=== PATIENT | female | born 1990 | race African-American/Black ===

== ENCOUNTER 2018-03-01 22:13 | Emergency (ER) | payer OTHER, SELFPAY ==
[2018-03-01 22:20] VITALS: BP 105/74; PULSE 80; RESP 18; TEMP 36.6; O2SAT 98; BMI 26.0
[2018-03-01] MEDS: KETOROLAC 60 MG/2 ML VIAL 30 MG IV (22:54)
[2018-03-01 23:00] LABS: Add Manual Diff / Slide Review NO; Basophils Percent Auto 0.2 % (0-2); Eosinophils Percent Auto 1.2 % (2-4); Hematocrit 37.2 % (36-46); Hemoglobin 12.5 g/dL (12.0-16.0); Lymphocytes Percent Auto 32.8 % (25-40); Mean Corpuscular HGB Conc 33.8 % (30-36); Mean Corpuscular Hemoglobin 30.5 PG (26-34); Mean Corpuscular Volume 90.2 fL (80-100); Monocytes Percent Auto 8.1 % (3-14); Neutrophils Absolute Auto 3700 /uL (3000-5900); Neutrophils Percent Auto 57.7 % (50-75); Platelet Count 245 X10^3/uL (150-400); Red Blood Cell Count 4.12 X10^6/uL (4.0-5.2); Red Cell Distribution Width 13.9 % (11.6-14.8); White Blood Cell Count 6.5 X10^3/uL (4.5-11.0)
[2018-03-01 23:06] LABS: Alanine Aminotransferase 18 IU/L (9-52); Albumin 4.1 g/dL (3.5-5.0); Albumin Globulin Ratio 1.3 (1.0-2.8); Alkaline Phosphatase 60 U/L (38-126); Aspartate Aminotransferase 17 IU/L (14-36); BUN Creatinine Ratio 12.9 (6-22); Bilirubin Total 0.3 mg/dL (0.2-1.3); Blood Urea Nitrogen 9 mg/dL (7-17); Calcium 9.1 mg/dL (8.4-10.2); Carbon Dioxide 24 mmol/L (22-32); Chloride 105 mmol/L (98-107); Estimated Glomerular Filt Rate > 60.0 mL/min (>60); Globulin 3.2 g/dL (1.7-4.1); Glucose 94 mg/dL (70-100); HEMOLYSIS 16 (0-50); Lipase 114 U/L (23-300); Potassium 3.9 mmol/L (3.4-5.1); Sodium 143 mmol/L (137-145); Total Protein 7.3 g/dL (6.3-8.2)
--- NOTE | 2018-03-02 00:25 | ED.ABDPAIN ---
HPI - Abdominal Pain General Chief Complaint: Abdominal Pain Stated Complaint: abdominal pain Time Seen by Provider: 03/01/18 23:43 Source: patient History of Present Illness HPI narrative: Patient is a 27-year-old female who presents with lower abdominal pain. She is currently being worked up for endometriosis is the 1st day of her menses. She had pretty bad cramping no excessive bleeding. She did take Aleve earlier today it only helped some. No nausea vomiting or fever. Related Data Previous Rx's Medication Instructions Recorded norgestimate-ethinyl estradiol 1 tab PO Q4H #56 pac 08/03/17 [Ortho-Cyclen (28)] Allergies Allergy/AdvReac Type Severity Reaction Status Date / Time Iodinated Contrast- Oral and Allergy Mild Verified 03/01/18 22:23 IV Dye [IODINATED CONTRAST- ORAL AND IV DYE] Review of Systems Review of Systems All systems reviewed & are unremarkable except as noted in HPI and below Constitutional Denies chills, Denies fever(s), Denies lethargy and Denies weakness Cardiovascular Denies chest pain, Denies irregular heart rhythm, Denies lightheadedness, Denies palpitations, Denies dyspnea, Denies dyspnea on exertion and Denies orthopnea Respiratory Denies cough, Denies dyspnea, Denies dyspnea on exertion and Denies wheezing Gastrointestinal Gastrointestinal: Reports as per HPI Genitourinary Reports system reviewed and no additional complaints, except as docu Integumentary/Breasts Denies pruritus, Denies erythema, Denies rash and Denies wounds Neurologic Denies weakness Endocrine Denies palpitations Allergic/Immunologic Denies wheezing PFSH Medical History Dysfunctional uterine bleeding (Acute) Social History Smoking Status: Never smoker Exam Initial Vital Signs Initial Vital Signs: Vital Signs Temperature 98 F 03/01/18 22:20 Pulse Rate 80 03/01/18 22:20 Respiratory Rate 18 03/01/18 22:20 Blood Pressure 105/74 03/01/18 22:20 Pulse Oximetry 98 03/01/18 22:20 GENERAL: Well-appearing, well-nourished and in no acute distress. HEENT: Head atraumatic,EOMI, pupils reactive, face symmetric, moist mucous membranes CARDIOVASCULAR: Regular rate and rhythm without murmurs, rubs or gallops. RESPIRATORY: Breath sounds equal bilaterally, no wheezes rales or rhonchi. ABDOMEN: Soft, mild lower abdominal tenderness all across no guarding no rebound no specific right lower quadrant pain : No CVA tenderness EXTREMITIES: Normal range of motion, no clubbing or edema. Neurovascularly intact NEUROLOGICAL: Alert and oriented x4.Normal gait and speech. SKIN: Warm, dry, no laceration, no petechiae, no rashes or lesions. Course Orders Ordered: ED Orders 03/01/18 22:40 Complete Blood Count AUTO DIFF Stat Comprehensive Metabolic Panel Stat Lipase Stat Discontinued Medications Ketorolac Tromethamine (Toradol) 30 mg IV NOW ONE Stop: 03/01/18 22:43 Last Admin: 03/01/18 22:54 Dose: 30 mg Ondansetron HCl (Zofran) 4 mg IV NOW ONE Stop: 03/01/18 22:43 Last Admin: 03/01/18 22:54 Dose: Not Given Vital Signs - 8 hr 03/01/18 22:20 03/02/18 00:29 Temperature 98 F Pulse Rate 80 72 Respiratory Rate 18 14 Blood Pressure 105/74 95/70 Pulse Oximetry 98 99 MDM - Abdominal Pain Lab Data Attestation: I reviewed the patient's lab results. Negative Result diagrams: 03/01/18 22:40 03/01/18 22:40 Lab Results 03/01/18 03/01/18 Range/Units 22:40 22:40 WBC 6.5 (4.5-11.0) X10^3/uL RBC 4.12 (4.0-5.2) X10^6/uL Hgb 12.5 (12.0-16.0) g/dL Hct 37.2 (36-46) % MCV 90.2 (80-100) fL MCH 30.5 (26-34) PG MCHC 33.8 (30-36) % RDW 13.9 (11.6-14.8) % Plt Count 245 (150-400) X10^3/uL Neut % (Auto) 57.7 (50-75) % Lymph % (Auto) 32.8 (25-40) % Sharp % (Auto) 8.1 (3-14) % Eos % (Auto) 1.2 L (2-4) % Baso % (Auto) 0.2 (0-2) % Neut # (Auto) 3700 (8283-8625) /uL Sodium 143 (137-145) mmol/L Potassium 3.9 (3.4-5.1) mmol/L Chloride 105 (98-107) mmol/L Carbon Dioxide 24 (22-32) mmol/L BUN 9 (7-17) mg/dL Creatinine 0.70 (0.52-1.04) mg/dL Estimated GFR > 60.0 (>60) mL/min BUN/Creatinine Ratio 12.9 (6-22) Glucose 94 (70-100) mg/dL Calcium 9.1 (8.4-10.2) mg/dL Total Bilirubin 0.3 (0.2-1.3) mg/dL AST 17 (14-36) IU/L ALT 18 (9-52) IU/L Alkaline Phosphatase 60 (38-126) U/L Total Protein 7.3 (6.3-8.2) g/dL Albumin 4.1 (3.5-5.0) g/dL Globulin 3.2 (1.7-4.1) g/dL Albumin/Globulin Ratio 1.3 (1.0-2.8) Lipase 114 (23-300) U/L MDM Narrative Medical decision making narrative: The patient is waiting to follow up at [facility] again for further endometriosis evaluation. Feeling better after Toradol. Discharge Plan Departure Patient Disposition: Home, Self-Care Clinical Impression: Abdominal pain Discharge Date/Time: 03/02/18 00:37 Interventions: ED Discharge Assessment Last Done: 03/02/18 00:29 Instructions: DI for Endometriosis Activity Restrictions/Additional Instructions: *You have been diagnosed with abdominal pain, probable endometriosis *What to do: Blood work at this time is within normal limits *Continue to take medications as directed *Follow up with your primary care provider in 2-3 days *Return to ER if you should have excessive bleeding going through more than 1 pad or tampon an hour, increasing abdominal pain or any new, worsening or concerning symptoms Prescriptions: No Action norgestimate-ethinyl estradiol [Ortho-Cyclen (28)] 1 EACH tablet 1 tab PO Q4H Qty: 56 RF: 0 Referrals: [facility] [Outside] Kyler Luz MD [Primary Care Provider] -
[2018-03-02 00:29] VITALS: BP 95/70; PULSE 72; RESP 14; O2SAT 99
== END 2018-03-02 00:37 | disposition home or self-care (01) ==
PROVIDERS: Emergency Provider Emergency Medicine; Family Provider General Practice; PCP General Practice
DX: R10.9 Unspecified abdominal pain (principal)
CPT/HCPCS: 36591; 80053; 81003; 81025; 83690; 85025; 96374; 96375; 99282; 99284; J1885